=== PATIENT | female | born 1930 | race Caucasian/White ===

== ENCOUNTER 2017-10-23 08:50 | Outpatient (CLI) | payer OTHER | END 2017-10-23 08:57 | disposition home or self-care (01) | LOC: TOM 08:50 | DX: E11.9 Type 2 diabetes mellitus without complications (principal); K44.9 Diaphragmatic hernia without obstruction or gangrene; K57.30 Diverticulosis of large intestine without perforation or abscess without bleeding; Z80.0 Family history of malignant neoplasm of digestive organs; K29.70 Gastritis, unspecified, without bleeding; R12 Heartburn; E03.8 Other specified hypothyroidism; K20.8 Other esophagitis; K64.8 Other hemorrhoids; K31.7 Polyp of stomach and duodenum; K31.89 Other diseases of stomach and duodenum; K63.5 Polyp of colon ==

== ENCOUNTER 2017-12-22 16:04 | Outpatient (CLI) | payer OTHER | END 2017-12-22 16:27 | disposition home or self-care (01) | LOC: RAD 16:04 | DX: M54.14 Radiculopathy, thoracic region (principal); M62.830 Muscle spasm of back ==

== ENCOUNTER 2018-08-06 07:39 | Outpatient (CLI) | payer OTHER | END 2018-08-06 08:10 | disposition home or self-care (01) | LOC: TOM 07:39 | DX: K63.5 Polyp of colon (principal); E11.9 Type 2 diabetes mellitus without complications; Z80.0 Family history of malignant neoplasm of digestive organs; K64.0 First degree hemorrhoids; K31.89 Other diseases of stomach and duodenum; K29.70 Gastritis, unspecified, without bleeding; R12 Heartburn; E03.8 Other specified hypothyroidism; K20.8 Other esophagitis; K64.8 Other hemorrhoids; K31.7 Polyp of stomach and duodenum; R63.0 Anorexia; R19.4 Change in bowel habit; R19.7 Diarrhea, unspecified ==

== ENCOUNTER 2018-08-13 09:06 | Outpatient (CLI) | payer OTHER | END 2018-08-13 15:00 | disposition home or self-care (01) | LOC: LAB 09:06 | DX: Z86.010 Personal history of colon polyps (principal); D49.0 Neoplasm of unspecified behavior of digestive system; N20.0 Calculus of kidney; Z51.81 Encounter for therapeutic drug level monitoring ==

== ENCOUNTER 2018-10-13 17:17 | Outpatient (CLI) | payer OTHER | END 2018-10-13 17:21 | disposition home or self-care (01) | LOC: RAD 17:17 | DX: M25.552 Pain in left hip (principal); M25.551 Pain in right hip ==

== ENCOUNTER 2019-04-14 08:22 | Outpatient (CLI) | payer OTHER | END 2019-04-14 08:39 | disposition home or self-care (01) | LOC: NUCLEAR 08:22 | DX: I34.0 Nonrheumatic mitral (valve) insufficiency (principal); I35.1 Nonrheumatic aortic (valve) insufficiency ==

== ENCOUNTER 2019-05-09 12:30 | Outpatient (CLI) | payer OTHER | END 2019-05-09 15:00 | disposition home or self-care (01) | LOC: LAB 12:30 | DX: R06.09 Other forms of dyspnea (principal) ==